=== PATIENT | female | born 1970 | race Caucasian/White ===

== ENCOUNTER 2016-08-26 21:11 | Emergency (ER) | payer BC ==
[2016-08-26 22:15] LABS: HEMOGLOBIN 14.1 gm/dl (12.3-15.3); RED BLOOD COUNT 4.79 M/UL (4.00-5.10); WHITE BLOOD COUNT 7.4 K/UL (4.5-11.0)
[2016-08-26 22:35] LABS: BUN/CREATININE RATIO 11 (0-10)
== END 2016-08-27 02:16 | disposition home or self-care (01) ==
LOC: ER1 21:11
PROVIDERS: Emergency Medicine
DX: S82.52XA Displaced fracture of medial malleolus of left tibia, initial encounter for closed fracture (principal); S82.832A Other fracture of upper and lower end of left fibula, initial encounter for closed fracture; X50.1XXA Overexertion from prolonged static or awkward postures, initial encounter; Y92.009 Unspecified place in unspecified non-institutional (private) residence as the place of occurrence of the external cause
CPT/HCPCS: 29515; 36415; 73610; 73630; 80053; 84703; 85025; 85610; 85730; 96374; 96375; 96376; 99283; J2270; J2405; J3010